=== PATIENT | female | born 1990 | race Caucasian/White ===

== ENCOUNTER 2019-11-08 07:32 | Outpatient (CLI) | payer OTHER, SELFPAY ==
--- NOTE | ~2019-11-08 | US_ITS ---
EXAMINATION: US right upper quadrant EXAM DATE: 11/08/2019 08:04 INDICATION: Right upper quadrant pain, 20 weeks. TECHNIQUE: Multiple grayscale and Doppler images of the abdomen right upper quadrant were obtained (b y a technologist who performed the scan) and subsequently reviewed. There is no prior study for tacho montgomery. FINDINGS: The pancreatic head and body are normal in appearance. The pancreatic tail is not visualized. The l iver has normal echogenicity and contour. There are no focal liver lesions identified. There is no evidence of intrahepatic biliary duct dilation. Portal venous flow was seen in the hepatopedal, nor mal direction and has normal Doppler waveform. No right-sided hydronephrosis. Common bile duct measures 2 mm, which is normal. The gallbladder wall is normal in thickness, with ex pected amount of distention. No sonographic evidence of pericholecystic fluid. There is no cholelit hiases. Technologist performing exam reports patient did not demonstrate sonographic Trinidad's sign. Please note that this sign is less reliable in patients who have received pain medication. IMPRESSION: 1. Unremarkable abdominal ultrasound exam. Reviewed, dictated and finalized at location A.
== END 2019-11-08 07:33 | disposition home or self-care (01) ==
PROVIDERS: PCP Family Medicine; Visit Provider Obstetrics & Gynecology
DX: R10.11 Right upper quadrant pain (principal); Z34.92 Encounter for supervision of normal pregnancy, unspecified, second trimester; Z3A.20 20 weeks gestation of pregnancy
CPT/HCPCS: 76705

== ENCOUNTER 2020-03-28 17:33 | Inpatient (IN) | payer OTHER, SELFPAY ==
[2020-03-28] VITALS (9 sets, daily range): BP systolic 125–148; BP diastolic 73–91; PULSE 74–110; TEMP 36.6–37.1; BMI 33.7
--- NOTE | 2020-03-28 17:33 | LDADM ---
This patient, Vannessa Keene, was admitted to Labor/Delivery/Recovery 104 on 03/28/20 at 17:33. Plans for labor, pain management and were discussed with patient. Patient/family oriented to hospital policies and general routines including ID bracelet, bed and alarms, visiting hours, pain management, procedures, bathroom and other care routines, personal items, smoking policy, room service/diet and guest tray routines, security routines, and visiting hours. Patient/Family are encouraged to report perceived risks to care and to ask questions if they do not understand what they are told or what they should do. See OBIX for further documentation.
[2020-03-28 18:39] LABS: Basophils Percent Auto 0.4 % (0.2-1.2); Eosinophils Absolute Auto 0.1 K/mm3 (0-0.3); Eosinophils Percent Auto 0.6 % (0-4.4); Hematocrit 31.9 % (37.0-47.0); Hemoglobin 10.3 g/dL (12.0-15.0); Immature Granulocyte Absolute 0.06 K/mm3 (0.00-0.031); Immature Granulocyte Percent A 0.5 % (0-0.5); Lymphocytes Percent Auto 19.1 % (18.3-44.2); Mean Corpuscular HGB Conc 32.3 g/dl (32-36); Mean Corpuscular Hemoglobin 25.6 pg (26-34); Mean Corpuscular Volume 79.2 fl (80-100); Mean Platelet Volume 9.7 fl (7.4-10.4); Monocytes Absolute Auto 0.5 K/mm3 (0.1-0.6); Monocytes Percent Auto 4.5 % (2.6-8.5); Neutrophils Absolute Auto 8.2 K/mm3 (1.3-6.7); Neutrophils Percent Auto 74.9 % (45.5-73.1); Platelet Count Result 265 k/mm3 (150-375); Red Blood Count 4.03 M/mm3 (4.2-5.4); Red Cell Distribution Width 13.4 % (11.5-14.5)
[2020-03-28] MEDS: DINOPROSTONE 10 MG VAG INSERT VAGINAL (18:59)
--- NOTE | 2020-03-28 20:04 | P.PNAN_ITS ---
Anes - Eval Pre Procedure Procedure: Labor epidural Date/Time: 03/28/20 20:04 Surgeon: Gary Bueno M.D. Preop Diagnosis: pain during labor Pre Op Diagnosis: induction of labor Patient Data Age: 29 Gender: F Height: 1.63 m Weight: 89 kg Last Vital Signs Temp 36.8 C 03/28/20 19:05 Pulse 87 03/28/20 20:01 BP 144/78 H 03/28/20 20:01 Allergies Allergy/AdvReac Type Severity Reaction Status Date / Time No Known Allergies Allergy Verified 02/24/20 12:20 Home Medications Medication Instructions Recorded Confirmed Type PNV cmb#95-ferrous fumarate-FA 1 tablet PO DAILY 02/24/20 02/24/20 History [] Laboratory Tests 03/28/20 03/28/20 03/28/20 18:32 18:32 18:33 WBC 11.0 K/mm3 H K/mm3 (4.5-10.0) RBC 4.03 M/mm3 L M/mm3 (4.2-5.4) Hgb 10.3 g/dL L g/dL (12.0-15.0) Hct 31.9 % L % (37.0-47.0) MCV 79.2 fl L fl (80-100) MCH 25.6 pg L pg (26-34) MCHC 32.3 g/dl g/dl (32-36) RDW 13.4 % % (11.5-14.5) Plt Count 265 k/mm3 k/mm3 (150-375) MPV 9.7 fl fl (7.4-10.4) Immature Gran % (Auto) 0.5 % % (0-0.5) Neut % (Auto) 74.9 % H % (45.5-73.1) Lymph % (Auto) 19.1 % % (18.3-44.2) Taylor % (Auto) 4.5 % % (2.6-8.5) Eos % (Auto) 0.6 % % (0-4.4) Baso % (Auto) 0.4 % % (0.2-1.2) Lymph # (Auto) 2.10 K/mm3 K/mm3 (0.9-3.2) Taylor # (Auto) 0.5 K/mm3 K/mm3 (0.1-0.6) Eos # (Auto) 0.1 K/mm3 K/mm3 (0-0.3) Baso # (Auto) 0.0 K/mm3 K/mm3 (0.0-0.1) Abs Immat Gran (auto) 0.06 K/mm3 H K/mm3 (0.00-0.031) Absolute Neuts (auto) 8.2 K/mm3 H K/mm3 (1.3-6.7) Absolute Nucleated RBC 0.0 K/mm3 K/mm3 (0.0-0.012) Nucleated RBC % 0.0 % % (0.0-0.2) RPR Pending Blood Type Pending Antibody Screen Pending Patient hx anesthesia problems: none Family hx anesthesia problems: none [facility] Social History Social History Smoking status: Never smoker Substance use: never Spiritual care concerns: No Exam Day of Procedure 03/28/20 20:04
[2020-03-29] VITALS (194 sets, daily range): BP systolic 100–183; BP diastolic 47–170; PULSE 72–141; RESP 16–18; TEMP 36.6–37.7; O2SAT 92–100
[2020-03-29] MEDS: LACTATED RINGERS 1,000 ML 125 ML IV CONT ×3 (04:07→06:54)
[2020-03-29] MEDS: OXYTOCIN 30 UNITS/NS 500 ML 30 UNITS/500 ML BAG 6 UNITS IV CONT (05:55)
--- NOTE | 2020-03-29 08:45 | WPDOBADMIT ---
Obstetrics - Admit Note Admission Note: record reviewed. Additions to the history and/or subsequent changes in the physical findings follow. 29 y/o G1 at 40 3/7 weeks here for induction. Cervidil was placed last night, has been withdrawn. Now receiving oxytocin. Comfortable with epidural. GBS neg. AVSS NST reactive TOCO: contractions every 2-4 min ABD soft, nontender, gravid, vertex EXT nontender Cervix 6-7/90/-1. Vertex. AROM with clear fluid. A: IUP at term, here for induction of labor. P: Continue oxytocin. Anticipate .
[2020-03-29 10:20] LABS: Rapid Plasma Reagin Non-Reactive (NonReactive)
--- NOTE | 2020-03-29 12:40 | PM.OBPNLAB ---
Pain Control Date/time seen: 03/29/20 12:40 Comments: Feeling some pressure. Pelvic Exam Dilation (cm): 10 Effacement (%): 100 station: +1 Contractions Contraction frequency: 3 Contraction pattern: Regular Status status: Category l Assessment and Plan Comments: Begin pushing.
--- NOTE | 2020-03-29 13:30 | P.PCNOB_ITS ---
OB - Delivery Note Procedure Delivery date: 03/29/20 Procedure: Induction of labor with Delivery monitor: external FHT, external uterine and internal uterine Route of delivery: Laceration description: Perineal - 2nd Degree Delivery repair: vicryl (3-0) Specimen: Yes (cord blood) Estimated blood loss (mL): 210 Anesthesia type: Epidural Disposition: PACU Complications: none Narrative: 29 y/o G1 at 40 3/7 weeks gestation who presented to the hospital for induction of labor. Cervidil was placed overnight, then was withdrawn the following morning. Oxytocin was administered intravenously. Amniotomy was performed with return of clear fluid. She received an epidural for pain control. Her labor progressed and her cervix dilated completely. She pushed with good effort and delivered the 's head to the perineum, followed by the body. The nose and mouth were bulb suctioned. After a delay, the cord was clamped and cut. The infant was handed off the field. Cord blood was collec woody. The placenta delivered spontaneously and was grossly normal in appearance. The usual 3 vessel cord was noted. A second degree midline perineal laceration was sustained. This was reapproximated using 3 0 Vicryl in the usual layered fashion. Excellent hemostasis resulted as did excellent reapproximation of the normal anatomy. Needle and instrument counts were correct. The patient was mayra en to recovery room in stable condition. The infant went to the nursery in stable condition. I was present and scrubbed for the entire delivery. Brandon Baby Date of : 03/29/20 Time of : 13:14 Weeks of gestation at delivery: 40 gender: Male Weight (pounds): 8 Weight (ounces): 14 presentation: vertex position: Right Occiput Anterior Placenta delivery description: Spontaneous cord vessel description: 3 Vessels score one minute: 9 score five minutes: 9
[2020-03-29] MEDS: OXYTOCIN 30 UNITS/NS 500 ML 30 UNITS/500 ML BAG 125 UNITS IV CONT (13:43)
[2020-03-29] MEDS: BENZOCAINE 20% AER SPR (*SP) 56 GM CAN 1 SPRAY TOPICAL (16:00)
[2020-03-29] MEDS: WITCH HAZEL 40 PADS 1 PAD TOPICAL (16:00)
--- NOTE | 2020-03-29 16:22 | PC.NURSE ---
Patient transferred to post room # 288 via wheelchair. Support person present. Oriented to unit, room, information board, rooming in, admission packet and security measures. Patient verbalizes understanding.
[2020-03-29] MEDS: IBUPROFEN 600 MG TABLET PO ×2 (17:18→23:40)
[2020-03-29] MEDS: DOCUSATE SODIUM 100 MG CAPSULE PO (17:19)
[2020-03-29] MEDS: LANOLIN (LANSINOH) 7.5 GM CREAM 1 APPLIC TOPICAL (17:19)
[2020-03-30] MEDS: IBUPROFEN 600 MG TABLET PO ×2 (05:15→12:05)
[2020-03-30 05:29] LABS: Hematocrit 26.2 % (37.0-47.0); Hemoglobin 8.4 g/dL (12.0-15.0)
--- NOTE | 2020-03-30 07:49 | WPDANLDPN2 ---
Anes-Prog Note L&D Date/Time: 03/30/20 07:49 Comfortable throughout: labor Neuraxial method: epidural Epidural/Spinal procedure site: clean & non-tender Neuro status: Neuro function grossly intact. Cardiovascular status: normal Respiratory status: normal Airway patency: baseline Mental status: baseline Post-Op hydration status: normal Vital Signs: Last Vital Signs Temp 36.7 C 03/29/20 22:00 Pulse 100 03/29/20 22:00 Resp 16 03/29/20 22:00 BP 121/78 03/29/20 22:00 Pulse Ox 99 03/29/20 22:00 I/O: Intake & Output 03/29/20 03/29/20 03/30/20 15:59 23:59 07:59 Intake Total 1000 325 Output Total 210 54 Balance 790 271 Post-procedural complaints: none Patient feedback: Patient satisfied with anesthetic care.
[2020-03-30 08:05] VITALS: BP 113/68; PULSE 80; RESP 16; TEMP 36.2; O2SAT 99
--- NOTE | 2020-03-30 09:15 | PC.NURSE ---
Consult with pt., mother reports she attempted to breast a few times after delivery. Mother states she has chosen to pump and bottle feed. Reviewed instructions given on breast pump care and usage, pumping schedule, nipple care, and collection and storage of breast milk. Encouraged [id number], breast massage and manual expression to stimulate supply. Pumping log provided and reviewed. Assessed patient for correct flange size, placement and draw. Patient verbalizes and demonstrates understanding of instructions. Mother is feeding as required and waking to feed if needed. Infant is currently meeting outcomes for weight,output, jaundice and feeding frequencies. Mother states she feels confident to continue current feeding plan at home. Reviewed transition to breast milk, signs of adequate intake, and engorgement/relief. Instructed to call ICP if intake/output less than required. Reviewed regular medications mother is taking. Information provided per Lynn. Reviewed community resources on the [employer] website and in the Mom/Baby guide. Information on outpatient services provided. Mother has no further questions at this time.
[2020-03-30] MEDS: POLYSACCHARIDE IRON COMPLEX 150 MG CAPSULE PO (09:47)
[2020-03-30] MEDS: MULTIVIT/MIN/PREN/FOL AC/IRON TABLET 1 TAB PO (09:47)
[2020-03-30] MEDS: DOCUSATE SODIUM 100 MG CAPSULE PO (09:47)
--- NOTE | 2020-03-30 13:13 | PM.OBPNVD ---
OB - PN: Subj Subjective Date/time seen: 03/30/20 13:13 Narrative: Pain OK. Would like circumcision for son. Would like to go home today. OB - PN: Obj Data Labs CBC & Chem 7: 03/30/20 05:10 Labs: Laboratory Results - last 24 hr 03/30/20 05:10 Hgb 8.4 L Hct 26.2 L OB - PN A/P Plan Comments: A: PPD#1, doing well. P: Home today. Reviewed circumcsion in detail. Exam Psych: Other: AVSS ABD soft, nontender, fundus firm EXT nontender
[2020-03-30] MEDS: TETANUS,DIPHTHERIA,AC PERTUSSIS ADULT (0.5 ML) BOOSTRIX IM (14:16)
[2020-03-31 13:50] VITALS: BP 127/83; PULSE 100; RESP 20; TEMP 36.2; O2SAT 100
--- NOTE | 2020-04-02 11:54 | PM.OBDSVD ---
DS: Admitting Diagnosis Admitting Diagnosis Admitting Diagnosis: IUP at term DS: Discharge Diagnosis Discharge Diagnosis (1) (normal spontaneous vaginal delivery): Code(s): O80 - Encounter for full-term uncomplicated delivery Status: Acute OB - DS: Summary OB Procedures : None OB Procedures Intrapartum: Spontaneous Vag Delivery OB Procedures: : None Time Spent with Patient Time attestation: Total time spent providing and/or coordinating discharge services: Discharge Plan Discharge Attending physician on discharge: Gary Bueno Discharging Clinician: Gary Bueno Patient Disposition: Home, Self-Care Activity: pelvic rest Diet: regular Discharge Instructions: Education: Mom and Baby Guide Given to: Mother Follow-Up: Call your delivering provider's office for an appointment to be seen in: 6 Weeks Mom and baby should come to the [facility] for the follow-up appointment. Appointment Date/Time: March 30, 2020 at 1:30 pm What to expect at your follow-up visit: Blood Pressure Check Physical Assessment Call [phone] if you are unable to keep your appointment time. BREAST CARE: * Wear a snug supportive bra. * For engorgement discomfort: Breast Feeding: * Apply warm moist washcloths * Express milk as needed to relieve engorgement * Wear loose clothing EPISIOTOMY/PERINEAL CARE: * Until bleeding stops, use your [place] bottle after urinating * Change your pad frequently throughout the day * You may take sitz baths several times a day (fill your bathtub with warm water and soak for 20 minutes.) Do NOT bathe in the water * No tub baths until seen by your physician - You may shower ACTIVITY: * Rest as much as possible. * Do not exercise or lift anything heavier than your baby (such as laundry or other children.) * Avoid stairs or driving as much as possible. * Do not put anything into the vagina. No douching, tampons, or sexual activity until seen by physician. NOTIFY PHYSICIAN IF YOU HAVE ANY QUESTIONS OR IF ANY OF THE FOLLOWING SYMPTOMS OCCUR: * If your perineum becomes red, swollen, or more painful than what you have experienced in the hospital. * If your vaginal bleeding becomes foul smelling. * If your vaginal bleeding becomes more heavy than a period or if your bleeding changes from pink to bright red. However, you may pass an occasional walnut-sized clot once or twice for the first week . * If you experience a sharp, shooting pain in your calves. * If you discover a hard, reddened area on your breast or if you experience flu-like symptoms. DIET: * Eat regular, well-balanced meals. * Drink plenty of fluids daily. Call or return if temperature above 100.4? F, increased abdominal pain, increased vaginal bleeding or any new problems. Stand Alone Forms: General Discharge Information Follow-up/Referrals: Gary Bueno MD [Physician] - (6 weeks) Discharge Medications: New ibuprofen 600 mg tablet 600 mg PO Q6H PRN (Reason: cramps) Qty: 30 RF: 0 ferrous sulfate 325 mg (65 mg iron) tablet 325 mg PO DAILY Qty: 30 RF: 0 Continued PNV cmb#95-ferrous fumarate-FA [] 28 mg iron- 800 mcg Tablet 1 tablet PO DAILY RF: 0 Date of admission: 03/28/20 17:33 Primary Care Provider: Carlos Enrique Caldwell Admitting Provider: Gary Bueno Discharge Date/Time: 03/30/20 16:04 Attending physician on admission: Gary Bueno
== END 2020-03-30 16:04 | disposition home or self-care (01) | DRG 807 ==
LOC: ANHLDR 17:39 → ANHOB2 03-29 16:28
PROVIDERS: Admitting Provider Obstetrics & Gynecology; PCP Family Medicine; Visit Provider Obstetrics & Gynecology
DX: O76 Abnormality in fetal heart rate and rhythm complicating labor and delivery (principal); Z37.0 Single live birth; O70.1 Second degree perineal laceration during delivery; Z3A.40 40 weeks gestation of pregnancy
CPT/HCPCS: 36415; 85014; 85018; 85025; 86592; 86850; 86900; 86901; 90715; A9270; J2590; J2795; J3010; J7120

== ENCOUNTER 2020-10-04 10:23 | Outpatient (CLI) | payer OTHER, SELFPAY ==
[2020-10-05 18:20] LABS: SARS-CoV-2 RNA PCR Negative
== END 2020-10-04 10:24 | disposition home or self-care (01) ==
PROVIDERS: PCP Family Medicine; Visit Provider Family Medicine
DX: J00 Acute nasopharyngitis [common cold] (principal)
CPT/HCPCS: 87081; 87880; C9803; U0003; U0005

== ENCOUNTER 2021-05-13 12:31 | Outpatient (CLI) | payer OTHER, SELFPAY ==
--- NOTE | 2021-05-15 15:26 | WPDHOLTEREM ---
Holter/Event Monitor Holter/Event Monitor Date of procedure: 05/13/21 Holter/Event Procedure: 24 Hr Holter Monitor Indications: Syncope Conclusion: 1. 24 hour holter monitor on 05/13/21. 2. Underlying rhythm is sinus rhythm with sinus arrhythmia. HR range 51-129 bpm; average HR 74 bpm. 3. There are 12 premature supraventricular complexes. No supraventricular tachycardia. 4. No premature ventricular complexes. No ventricular tachycardia. 5. No sinoatrial or atrioventricular blocks. No significant pauses greater than 2 seconds. 6. Patient reports symptom of headache which demonstrate sinus rhythm at 98 bpm.
== END 2021-05-13 12:32 | disposition home or self-care (01) ==
PROVIDERS: PCP Family Medicine; Visit Provider Family Medicine
DX: R55 Syncope and collapse (principal)
CPT/HCPCS: 93225; 93226

== ENCOUNTER 2021-05-15 07:53 | Outpatient (CLI) | payer OTHER, SELFPAY ==
--- NOTE | ~2021-05-15 | MR_ITS ---
EXAMINATION: MR brain/brain stem wo/w con EXAM DATE: 05/15/2021 08:43 INDICATION: Syncope and Collapse. TECHNIQUE: Magnetic resonance imaging (MRI) of the brain/brain stem obtained without contrast. Sagit amaury T1, axial diffusion, gradient echo (T2*), T1, T2, FLAIR sequences obtained. Patient was then inj ected with 14 cc intravenous Multihance contrast. Axial and coronal postcontrast T1 weighted sequence s obtained. There is no prior study for comparison. FINDINGS: There are no areas of restricted diffusion to suggest acute infarction. There is no acute hemorrhage seen on the T2*, a hemosiderin sensitive sequence. No intraparenchymal brain mass. The ve ntricles are normal in size. There are no extra-axial collections. Flow voids are seen in the cereb ral arteries on the T2-weighted sequences consistent with their expected patency. The orbits are unr emarkable. Soft tissue is unremarkable. Mild maxillary sinus mucoperiosteal thickening. IMPRESSION: 1. Unremarkable brain MRI examination. Reviewed, dictated and finalized at location B.
== END 2021-05-15 07:54 | disposition home or self-care (01) ==
LOC: CHSIMG 07:56
PROVIDERS: PCP Family Medicine; Visit Provider Family Medicine
DX: R55 Syncope and collapse (principal)
CPT/HCPCS: 70553

== ENCOUNTER 2021-05-17 08:26 | Outpatient (CLI) | payer OTHER, SELFPAY ==
--- NOTE | 2021-05-17 14:26 | P.NEURO_ITS ---
Neurology EEG Report General Information Date of Study: 05/17/21 TEST eeg DIAGNOSIS Syncope and collapse CONDITION OF RECORDING awake and drowsy EEG NUMBER [id number] CLINICAL HISTORY patient reported last week she was out to dinner when she became dizzy and nauseous then loss consciousness. Witness stays she stopped breathing. By the time she got to the ER she felt back to normal EEG DESCRIPTION basic resting occipital frequency consists of large amount of well-organized medium to high voltage 9 to 10 hertz per 2nd alpha admixed with very minimal amount of low-voltage 15 to 18 hertz per 2nd beta. During drowsiness low- voltage beta activity seen diffusely admixed with waxing and waning posterior alpha rhythm which is symmetrical a block with the eyes opening. Photic stimulation produced normal drive hyperventilation not done. Non paroxysmal. Nonfocal. Nonlateralizing. IMPRESSION Normal record
== END 2021-05-17 08:27 | disposition home or self-care (01) ==
PROVIDERS: PCP Family Medicine; Visit Provider Family Medicine
DX: R55 Syncope and collapse (principal)
CPT/HCPCS: 95816